=== PATIENT | male | born 1940 | race Caucasian/White ===

== ENCOUNTER 2016-07-05 20:47 | Observation (INO) | payer SELFPAY ==
[2016-07-05 21:21] LABS: Hematocrit 42.7 % (42.0-52.0); Hemoglobin 14.7 gm/dL (13.5-18.0); Mean Cell Volume 91.6 fl (78-100); Mean Corpuscular Hemoglobin 31.5 pg (27-31); Mean Corpuscular Hgb Conc 34.4 g/dl (32-36); Mean Platelet Volume 8.9 fl (6.0-9.5); Platelet Count 264 K/mm3 (150-450); Red Blood Count 4.66 M/mm3 (4.7-6.0); Red Cell Distribution Width 13.1 % (11.5-14.0); White Blood Count 4.6 K/mm3 (4.0-10.5)
--- NOTE | 2016-07-05 21:30 | ERNOTE ---
Medical Problem HPI - General Chief Complaint: General Assessment Source: patient Exam Limitations: no limitations - Immun/Allergies/Home Medications Immunizations: IMMUNIZATION HX Immunizations Up to Date No History of Influenza Vaccine No Hx Pneumococcal Vaccination No Allergies/Adverse Reactions: Allergies Penicillins Allergy (Verified 07/05/16 20:59) Home Medications: HOME MEDICATIONS Sulfamethoxazole/Trimethoprim [Sulfamethoxazole-Tmp Ds Tablet] 1 each PO BID [Last Taken Unknown] - History of Present History Narrative: here for feeling "dehydrated and sick and weak". Also complains of cough. Symptoms have been going on for five days. He complains of subjective fevers and not feeling hungry Review of Systems - Review of Systems Constitutional: Present: weakness, fatigue EYE: Present: no symptoms reported ENT: Present: no symptoms reported Respiratory: Present: See HPI Cardiology: Present: no symptoms reported Gastrointestinal/Abdominal: Present: See HPI, other - denies nausea and vomiting but just has not been hungry Genitourinary: Present: no symptoms reported Musculoskeletal: Present: no symptoms reported Neurological: Present: weakness, other - pt states he feels weak in legs. He is tired and feels weak - Patient's Past Medical History Patient History - Medical: No pertinent hx Patient History - Cardiac/Respiratory: No pertinent hx Patient History - Cancer: No Hx of Cancer Patient History - Surgical Procedures: Other - Social History Living Situations: home Abuse History: No History of abuse Psych History: No pertinent hx Smoking Status: Never smoker Drug Use: none - Immunizations Immunizations Up to Date: No Hx Pneumococcal Vaccination: No History of Influenza Vaccine: No Physical Exam - Physical Exam General Appearance: Present: alert, no apparent distress, other - pt appears pale and tired and weak. He walks slowly and has a shuffling gait. BP reeals systolic elevation. Ears, Nose, Throat: Present: normal ENT inspection - I do not see an ear infection on this patient Neck: Present: normal inspection Respiratory: Present: no respiratory distress, normal breath sounds, chest nontender, lungs clear, other - on deep inspiration pt has a cough Cardiovascular/Chest: Present: regular rate, rhythm, no murmur, normal peripheral pulses ED Progress - Results and Orders Patient's Lab Results:: I have reviewed the patient's lab results. - Vital Signs Patient's Vital Signs:: I have reviewed the patient's vital signs. Vital Signs: Vital Signs 07/05/16 20:48 Temperature 38.5 C H Pulse Rate 85 Respiratory 14 Rate Blood Pressure 160/74 O2 Sat by Pulse 94 Oximetry - X-Ray X-Ray #1 X-Ray: chest - I see increase in right lower lobe markings on CXR on this patient - Progress/Reassessment Chief Complaint: General Assessment Plan - Plan Plan: pt's Lactate is 2.3. I consulted Rosalva the hospitalist with the patient with sepsis and the IVF was switched to sepsis protocol. Rosalva in turn asked to speak with Dr. Kerr prior to admission. Rosalva called back and asked that we do an abd U/S on this patient. I was informed by staff, Tram that U/S tech would not be here for at least 40 minutes. I called Rosalva and informed her that waiting for U/S tech would delay patient's admission to floor. Rosalva then accepted pt to the med surg unit. I was instructed by Rosalva to Hold on antibiotic administration for this patient and not administer any in this er at this time. Departure - Departure Clinical Impression: Sepsis Disposition: [facility] Condition: Stable
[2016-07-05 21:32] LABS: Total Cells Counted 100
[2016-07-05 21:34] LABS: Albumin * 3.1 gm/dl (3.4-5.0); BUN/Creatinine Ratio 11.4 (9.0-21.6); Bilirubin, Total 0.5 mg/dL (0.0-1.1); Ca. Corrected For Albumin 8.5 mg/dL (8.4-10.2); Calcium * 8.1 mg/dL (7.9-10.9); Total Protein 6.3 gm/dL (6.2-8.2)
[2016-07-05] MEDS: NORMAL SALINE 1,000 ML IV ONE ×2 (21:36→21:46)
[2016-07-05] MEDS: NORMAL SALINE 1,000 ML IV PRN ×3 (21:36→23:46)
[2016-07-05 21:47] LABS: Urine Appearance Clear; Urine Bilirubin Negative (NEGATIVE); Urine Blood Negative /ul (NEGATIVE); Urine Color Yellow; Urine Ketone Negative (NEGATIVE); Urine Nitrite Negative (NEGATIVE); Urine Protein Negative (NEGATIVE); Urine Urobilinogen 4 EU/dl (NORMAL)
[2016-07-05 21:48] LABS: Urine Bacteria None Seen; Urine RBC None Seen /hpf (0-5); Urine WBC 0-5 /hpf (0-5)
[2016-07-05 21:52] LABS: Eosinophil 1 % (0-3); Lymphocyte 11 % (20-51); Monocyte 6 % (0-9); Neutrophil 82 % (42-75); Neutrophil # 3.8 K/mm3 (1.3-6.0); Platelet Estimate Normal (NORMAL); RBC Morphology Normal (NORMAL)
--- OUTSIDE RECORDS SUMMARY | 2016-07-05 22:05 | XMS REPORT | Continuity of Care Document ---
:1940 Author Organization [facility] ([facility]) [place] [address] Phone [phone] Care Team Providers Name Role Phone Provider, No-Primary Care Primary Care Provider Unavailable Source Comments This disclosure is being made pursuant to the Care Everywhere program, applicable federal and state laws, and may not contain all informaitonavailable regarding this patient.[facility] ([facility]) Active Allergies and Adverse Reactions Allergen Noted Date Severity Reactions Comments Penicillin 05/26/2016 Urticaria (Hives) Current Medications Prescription Sig. Disp. Refills Start Date End Date Status aspirin 325 mg Take 325 mg Active tablet by mouth daily. furosemide 40 mg Take 1 tablet 30 tablet 11 05/26/2016 Active tablet (40 mg total) by mouth daily. trimethoprim-sulfam Take 1 tablet 14 tablet 0 06/30/2016 Active ethoxazole 160-800 by mouth 2 mg per tablet times daily. diclofenac 75 mg EC Take 1 tablet 60 tablet 11 05/26/2016 06/30/2016 Discontinued tablet (75 mg total) by mouth 2 times daily. Active Problems Not on file Most Recent Encounters Date Type Specialty Providers Description 06/30/2016 Office Visit Yoshi Vargas, Dx: URI with cough and Specialty PA-C congestion 06/30/2016 Office Visit Miguel Schneider - Yoshi Cabrera Dx: URI with cough and PA-C congestion (Primary Dx) 05/26/2016 Office Visit Miguel Schneider - Yessica Sawyer Dx: Primary Stuart Nguyễn DO osteoarthritis involving multiple joints (Primary Dx) Social History Tobacco Use Types Packs/Day Years Used Date Never Smoker Smokeless Tobacco: Never Used Last Filed Vital Signs Vital Sign Reading Time Taken Blood Pressure 133/79 06/30/2016 3:58 PM CDT Pulse 75 06/30/2016 3:58 PM CDT Temperature 37.4 C (99.3 F) 06/30/2016 3:58 PM CDT Respiratory Rate 16 06/30/2016 3:58 PM CDT Height - - Weight 89.812 kg (198 lb) 06/30/2016 3:58 PM CDT Body Mass Index - - Oxygen Saturation - - Plan of Care Health Maintenance Due Date Last Done Comments Hepatitis B Vaccine (1 of 3 - Primary Series) 1940 Tdap Vaccine 11/16/1950 Lipid Disorder Screening 11/16/1957 Td Vaccine 11/16/1957 Colonoscopy 11/16/1989 Zoster Vaccine 1999 Pneumococcal Vaccine (1 of 2 - PCV13) 11/16/2004 Influenza Vaccine: Seasonal (Season Ended) 2016 Results from Last 3 Months [facility] THYROID-STIMULATING HORMONE (TSH) (06/30/2016 4:42 PM) Component Value Range [facility] Thyroid-Stimulating Hormone (TSH) 1.13 0.24-5.40 uIU/mL Specimen Blood [facility] CBC WITH DIFFERENTIAL (06/30/2016 4:42 PM) Component Value Range [facility] WBC 5.5 3.6-9.4 th/mm3 [facility] RBC 4.79 4.40-5.60 mil/mm3 [facility] HEMOGLOBIN 15.2 13.8-17.0 g/dL [facility] HEMATOCRIT 45.2 41.0-51.0 % [facility] MEAN CORPUSCULAR VOLUME 94.4 84.0-98.0 fl [facility] MEAN CORPUSCULAR HGB 31.7 26.0-38.0 pg [facility] MEAN CORPUSCULAR HGB CONCENTRATION 33.6 32.0-36.0 g/dL [facility] PLATELET COUNT 295 150-350 th/mm3 [facility] Abs Neutrophils 3.26 2.60-7.00 th/mm3 [facility] Abs Lymphocytes 1.11 0.70-3.40 th/mm3 [facility] Abs Monocytes 0.83 0.10-1.00 th/mm3 [facility] Abs Eosinophils 0.31 0.00-0.45 th/mm3 [facility] Abs Basophils 0.01 0.00-0.12 th/mm3 [facility] % Neutrophils 59.1 34.0-67.9 % [facility] % Lymphocytes 20.1(L) 21.8-53.1 % [facility] % Monocytes 15.0 0.0-15.0 % [facility] % Eosinophils 5.6 0.0-6.0 % [facility] % Basophils 0.2 0.0-2.0 % Specimen Blood
--- OUTSIDE RECORDS SUMMARY | 2016-07-05 22:13 | XMS REPORT | Continuity of Care Document ---
:1940 Author Organization [facility] ([facility]) [place] [address] Phone [phone] Care Team Providers Name Role Phone Provider, No-Primary Care Primary Care Provider Unavailable Source Comments This disclosure is being made pursuant to the Care Everywhere program, applicable federal and state laws, and may not contain all informaitonavailable regarding this patient.[facility] ([facility]) Active Allergies and Adverse Reactions Allergen Noted [...] Ended) 2016 Results from Last 3 Months [facility] THYROID-STIMULATING HORMONE (TSH) (06/30/2016 4:42 PM) Component Value Range [facility] Thyroid-Stimulating Hormone (TSH) 1.13 0.24-5.40 uIU/mL Specimen Blood [facility] CBC WITH DIFFERENTIAL (06/30/2016 4:42 PM) Component [...]
[2016-07-05] MEDS ORDERED: ACETAMINOPHEN 325 MG TABLET PO PRN (22:53)
--- NOTE | 2016-07-05 23:13 | HP ---
Chief Complaint - Chief Complaint Date of Service: 07/06/16 Time of Service: 00:10 Chief Complaint: cough/fatigue History of Present Illness: Pt is a 75 year old [employer] male who presented to [facility] ER with complaints of cough , fatigue, dizziness, and weakness. States he has had rhinorrhea and cough and chills for the past week. Denies any n/v/d, endorses poor appetite and that has been sick with similar symptoms. States the week prior to his symptoms he was out in the cold rain working. He was recently seen yesterday at [facility] 06/30/16 for similar symptoms. There he was dx with URI and mando otitis media with effusion for which he was prescribed Bactrim DS BID. Upon presentation to our ER pt was febrile at 38.5, BP 160/74, HR 84, O2 94% on RA. Work up in ER included chest xray which showed hyperinflated lungs, no evidence of PN. Laboratory findings were as followed: WBC 4.6(neutrophils 82), H/H 14.7/ 42.7, Na+ 137, K+5, BUN/Creat 16/1.40, Mando 0.5, AST 175, AST 242, Alk phos 202, lactic acid 2.3, procalcitonin 0.18. UA was negative, although urobilirubin was elevated at 4. He will be admitted to observation overnight for IV hydration, repeat laboratory work, as well as an abdominal U/S to further evaluate the etiology of his elevated LFT's. - Patient's Past Medical History Patient History - Medical: No pertinent hx, Arthritis Patient History - Cardiac/Respiratory: Hypertension, Other - LE edema Patient History - Cancer: No Hx of Cancer Patient History - Surgical Procedures: Other - ureter stent Patient History - Other: None - Family History Mother Family History - Medical: , No pertinent hx Family History - Cardiac/Respiratory: No pertinent hx Family History - Cancer: No pertinent family hx Father Family History - Medical: , No pertinent hx Family History - Cardiac/Respiratory: No pertinent hx Family History - Cancer: No pertinent family hx - Social History Living Situations: home Abuse History: No History of abuse Psych History: No pertinent hx Smoking Status: Never smoker Alcohol Use: none Drug Use: none - Immunizations Immunizations Up to Date: No Hx Pneumococcal Vaccination: No History of Influenza Vaccine: No Review Of Systems (GEN) - Review of Systems Generalized/Overall Review: Present: Weakness, Chills, Fever, Diaphoresis Respiratory: Present: Cough Cardiac: Present: No Symptoms Reported Abdominal: Present: No Symptoms Reported Genitourinary: Present: No Symptoms Reported Musculoskeletal: Present: No Symptoms Reported Neurological: Present: No Symptoms Reported, Weakness Skin: Present: No Symptoms Reported Endocrine: Present: No Symptoms Reported Immunizations: IMMUNIZATION HX Immunizations Up to Date No History of Influenza Vaccine No Hx Pneumococcal Vaccination No Allergies/Adverse Reactions: Allergies Allergy/AdvReac Type Severity Reaction Status Date / Time Penicillins Allergy Verified 07/05/16 20:59 Home Medications: HOME MEDICATIONS Sulfamethoxazole/Trimethoprim [Sulfamethoxazole-Tmp Ds Tablet] 1 each PO BID [Last Taken 07/05/16 08:00] Exam - Exam Vital Signs: Vital Signs - Last Taken Temp 37.7 C H 07/05/16 22:38 Pulse 77 07/05/16 22:38 Resp 18 07/05/16 22:38 BP 132/68 07/05/16 22:38 Pulse Ox 95 RA 07/05/16 22:38 Constitutional: Present: Alert, Oriented x3, Cooperative, No distress, Elderly ENT Exam: Present: normal ENT inspection, hearing grossly normal, nasal drainage , other - Otoscope examination of right ear with erythema and cerumen buildup. No effusion or drainage noted. Pt denies any ear pain. Eye Exam: bilateral eye: normal inspection, PERRL Respiratory: Present: chest non-tender, no respiratory distress, no accessory muscle use, decreased breath sounds Cardiovascular/Chest: Present: normal peripheral pulses, regular rate, rhythm, no chest tenderness, no gallop, no JVD, no murmur, edema - RLE edema Peripheral Pulses: dorsalis-pedis (R): 2+, dorsalis-pedis (L): 2+, radial (R): 2 +, radial (L): 2+ Abdomen: Present: Normal bowel sounds, soft, nontender, nondistended, no rebound tenderness, no hepatospenomegaly, no masses Extremity: Present: normal range of motion, non-tender, normal inspection, no calf tenderness, lower extremity edema - RLE +1 pitting Skin Exam: Present: normal color, warm/dry, no cyanosis Neurologic: Present: no motor/sensory deficits, alert, normal mood/affect, oriented x 3 Appearance: Present: appropriate appearance, appropriate insight, neat, no memory impairment Eye contact: Present: cooperative, good eye contact, normal speech Thoughts: Present: normal thought pattern, no apparent hallucination Diagnostic Studies: Laboratory Results Laboratory Tests 07/05/16 07/05/16 07/05/16 21:15 21:15 21:15 WBC 4.6 RBC 4.66 L Hgb 14.7 Hct 42.7 Plt Count 264 Neutrophils % (Manual) 82 H Sodium 137 Potassium 5.0 H Chloride 103 Carbon Dioxide 25.0 Anion Gap 14.0 H BUN 16 Creatinine 1.40 Est GFR (Non-Af Amer) 52 L BUN/Creatinine Ratio 11.4 Random Glucose 147 H Lactic Acid, Venous 2.3 H* Total Bilirubin 0.5 AST 175 H ALT 242 H Alkaline Phosphatase 202 H Albumin 3.1 L Procalcitonin Urine Nitrate Ur Leukocyte Esterase Urine WBC Urine Bacteria 07/05/16 07/05/16 21:15 21:33 WBC RBC Hgb Hct Plt Count Neutrophils % (Manual) Sodium Potassium Chloride Carbon Dioxide Anion Gap BUN Creatinine Est GFR (Non-Af Amer) BUN/Creatinine Ratio Random Glucose Lactic Acid, Venous Total Bilirubin AST ALT Alkaline Phosphatase Albumin Procalcitonin 0.18 Urine Nitrate Negative Ur Leukocyte Esterase Negative Urine WBC 0-5 Urine Bacteria None seen Assessment/Plan - Assessment/Plan (1) Elevated LFTs Assessment: Unclear at this time etiology of LFT elevation. Urobilinogen elevated at 4, total bilirubin 0.5. Pt recently placed on Bactrim DS for ear infection, could possibly be the culprit. Per previous records from May 2016 pt was also prescribed 40mg PO Lasix and Diclofenac for arthritis. He states that he only takes them "every now and again." Last dose was "maybe" 5 days ago. Diclofenac is also known to cause an elevation in LFT's. Unfortunately in ER only a liver US was completed as pt was not NPO. Will maintain NPO status and repeat an abdominal US in the morning with attention to the GB. Pt reports poor appetite over the past week. Abdominal examination is benign, without any focal complaints. -NPO -Abdominal US in am -CBC/CMP in am -Stop Bactrim and Diclofenac Problem: Acute (2) Dehydration Assessment: Pt reports decreased fluid intake, appears a little hypovolemic on labs, H/H 14.7/42.7. BUN/Creat 16/1.40. Will bolus and provided MIVF overnight. Plan: -2L bolus -MIVF @ 100ml/hr -Hold Lasix Problem: Acute (3) Lactic acid acidosis Assessment: Lactic acid elevated at 2.3 on arrival. BUN/Creat 16/1.40. Initial in the workup in the ER was done for sepsis, pt was febrile at 38.5, but no other sepsis criteria was met. Pt WBC 4.6 (neutriphil % 82), procalcitonin 0.18, BP 160/74, HR 84. UA negative, chest xray with evidence of possible bronchitis. Will hydrate appropriately and repeat lactic acid per protocol, could be elevated due to dehydration. Plan: -2L bolus -Repeat lactic acid at 0000, 4hr -MIVF 100ml/hr Problem: Acute (4) Hyperkalemia Assessment: Potassium slightly elevated at 5.0, will continue to monitor, repeat labs in the morning. Plan: -CMP in am Problem: Acute (5) Cough Assessment: Pt endorses cough for past week after being out in the cold rain working. Most likely URI. Endorses clear nasal drainage, with similar symptoms. Problem: Acute
[2016-07-06] MEDS: DEXTROSE 5%-0.5 NORMAL SALINE 1,000 ML IV PRN ×2 (01:11→09:04)
[2016-07-06 05:45] LABS: Hematocrit 38.1 % (42.0-52.0); Mean Cell Volume 91.6 fl (78-100); Mean Corpuscular Hemoglobin 31.3 pg (27-31); Mean Corpuscular Hgb Conc 34.1 g/dl (32-36); Mean Platelet Volume 8.5 fl (6.0-9.5); Platelet Count 220 K/mm3 (150-450); Red Blood Count 4.16 M/mm3 (4.7-6.0); Red Cell Distribution Width 12.9 % (11.5-14.0); White Blood Count 3.2 K/mm3 (4.0-10.5)
[2016-07-06 06:05] LABS: Albumin * 2.6 gm/dl (3.4-5.0); Anion Gap 10.5 mmol/L (6.8-13.8); BUN/Creatinine Ratio 11.7 (9.0-21.6); Bilirubin, Total 0.5 mg/dL (0.0-1.1); Ca. Corrected For Albumin 8.6 mg/dL (8.4-10.2); Calcium * 7.8 mg/dL (7.9-10.9); Carbon Dioxide 25.7 mmol/L (24-32.6); Potassium 4.2 mmol/L (3.4-4.6); Total Protein 5.3 gm/dL (6.2-8.2)
[2016-07-06 06:20] LABS: Total Cells Counted 100
[2016-07-06 06:36] LABS: Atypical (Reactive) Lymph 3 % (0-2); Band 6 % (0-2.0); Basophil 2 % (0-1); Lymphocyte 14 % (20-51); Monocyte 6 % (0-9); Neutrophil 69 % (42-75); Neutrophil # 2.2 K/mm3 (1.3-6.0); Platelet Estimate Normal (NORMAL)
[2016-07-06 06:37] LABS: Dohle Bodies Trace
[2016-07-06 10:59] LABS: Amylase * 38 U/L (25-115); Lipase 157 U/L (73-393)
[2016-07-06 11:53] VITALS: BP 142/68
--- NOTE | 2016-07-06 12:38 | DS ---
(1) Elevated LFTs Problem: Acute (2) Bronchitis Problem: Acute (3) Dehydration Problem: Acute Description of Stay: DATE OF ADMISSION: 07/05/2016. DATE OF DISCHARGE: 07/06/2016. DIAGNOSTICS: ULTRASOUND ABDOMEN SINGLE ORGAN; 07/06/2016. COMPLETE ULTRASOUND OF ABDOMEN. DISCHARGE SUMMARY: Dede Sequeira is a 75-year-old male who was prescribed Bactrim DS for possible otitis media with effusion on 06/30/2016 at a local clinic after working out in the rain. Patient came in with a temp 38.5C and abnormal LFTs. CXR findings: Hyperinflated lungs c/w acute or chronic bronchitis; DISH [ diffuse idiopathic skeletal hyperostosis]; possible old 10th rib fracture. Patient underwent US liver which showed mildly enlarged liver at 17 cm with normal echo structure, normal bile ducts and no ascitis. Complete US of abdomen showed liver length to be 14.5 cm; GB wall thickness to be 2 mm w/o gallstones. Common hepatic duct 3 mm, CBD 4 mm. Examination was limited regarding pancreas. Patient was given IV fluids with improvement in symptoms. U/A was negative. Blood cultures after 5 days was negative. Bactrim was DC'd Patient felt improved after IV fluids and was discharged on prednisone due to wheezing. He was discharged in a stable condition. Procedures Performed: none Discharge Disposition: Home self care Disposition: Home self-care Condition: Stable Additional Patient Instructions (free text): Call in prespriptions, please. vitamin D3 and ceterizine are OTC meds. Need to see PCP for work up of abnormal LFTs. US of abdomen and gall bladder, liver were NL. please find out where the d/c summary should be sent. Following up with Dr Kerr on August 04 at 1:15pm, please bring list of medications with him. Prescriptions (Any new or edited meds): Cetirizine HCl 10 mg PO DAILY@2100 #14 tablet Cholecalciferol (Vitamin D3) [Vitamin D3] 5,000 unit PO DAILY #100 tablet Fluticasone Propionate [Flonase Allergy Relief] 9.9 ml NS DAILY #1 spray.susp predniSONE [Prednisone] 20 mg PO DAILY #15 tablet Complete Home Medications List: Complete Home Medication List: Cetirizine HCl 10 mg PO DAILY@2100 #14 tablet 07/06/16 Cholecalciferol (Vitamin D3) [Vitamin D3] 5,000 unit PO DAILY #100 tablet Fluticasone Propionate [Flonase Allergy Relief] 9.9 ml NS DAILY #1 spray.susp predniSONE [Prednisone] 20 mg PO DAILY #15 tablet 07/06/16
== END 2016-07-06 14:20 | disposition home or self-care (01) ==
LOC: ER 20:47 → MS 22:09 → UNDOADMIN 22:09 → INTOOBSV 22:09
PROVIDERS: ADMIT Nurse Practitioner Gerontology; ATTEND Internal Medicine
DX: J20.9 Acute bronchitis, unspecified (principal); R94.5 Abnormal results of liver function studies; E86.0 Dehydration; E87.2 Acidosis; I10 Essential (primary) hypertension; E87.5 Hyperkalemia; M19.90 Unspecified osteoarthritis, unspecified site
CPT/HCPCS: 36415; 71020; 76700; 76705; 80053; 81001; 82150; 83605; 83690; 84145; 85007; 85025; 87040; 96360; 96361; 99283; G0378